=== PATIENT | female | born 2000 | race Caucasian/White ===

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

== ENCOUNTER 2018-01-07 23:05 | Emergency (ER) | payer BC ==
[~2018-01-07] VITALS: Ht 157.5 cm; Wt 82.2 kg
[~2018-01-07 23:05] MED LIST: DOXYCYCLINE HY100 MG PO
[2018-01-08] MEDS ORDERED: ZITHROMAX Z-PA250 MG PO (00:18)
[2018-01-08 00:24] VITALS: BP 108/84
== END 2018-01-08 00:28 | disposition home or self-care (01) ==
LOC: EME 23:05
DX: J40 Bronchitis, not specified as acute or chronic (principal); Z71.6 Tobacco abuse counseling; F17.200 Nicotine dependence, unspecified, uncomplicated; Z86.19 Personal history of other infectious and parasitic diseases
CPT/HCPCS: 71046; 99281; 99284

== ENCOUNTER 2018-01-21 18:32 | Emergency (ER) | payer BC ==
[~2018-01-21] VITALS: Ht 157.5 cm; Wt 80.3 kg
[~2018-01-21 18:32] MED LIST changes: +ZITHROMAX Z-PA250 MG PO
[2018-01-21] MEDS ORDERED: TESSALON PERLE100 MG PO (22:14)
[2018-01-21] MEDS ORDERED: PREDNISONE20 MG PO (22:14)
[2018-01-21] MEDS ORDERED: FLONASE16 G1 BOTH NARES (22:14)
[2018-01-21] MEDS ORDERED: VENTOLIN HFA18 GM IH (22:14)
[2018-01-21 22:29] VITALS: BP 118/77
== END 2018-01-21 22:29 | disposition home or self-care (01) ==
LOC: EME 18:32
DX: J06.9 Acute upper respiratory infection, unspecified (principal); F17.200 Nicotine dependence, unspecified, uncomplicated
CPT/HCPCS: 71046; 84702; 94640; 99281; 99284; J7512